=== PATIENT | female | born 1975 | race Asian ===

== ENCOUNTER 2022-09-22 13:17 | Outpatient (CLI) | payer BC, OTHER ==
[~2022-09-22 13:17] MED LIST: Magnevist 469MG/ML 20 ML VIAL ONE
== END 2022-09-22 13:18 | disposition home or self-care (01) ==
LOC: BICMRI 13:17
PROVIDERS: ATTEND Otolaryngology Plastic Surgery within the Head & Neck
DX: H90.42 Sensorineural hearing loss, unilateral, left ear, with unrestricted hearing on the contralateral side (principal); D36.10 Benign neoplasm of peripheral nerves and autonomic nervous system, unspecified
CPT/HCPCS: 70553; 82565